=== PATIENT | female | born 1965 | race Caucasian/White ===

== ENCOUNTER 2023-07-05 20:20 | Emergency (ER) | payer BC ==
[2023-07-05] MEDS: Acetaminophen/HYDROcodone 325-5 MG Tab PO ONE (21:00)
[2023-07-05] MEDS: LORazepam 0.5 MG Tab PO ONE (21:00)
[2023-07-05 21:57] VITALS: BP 155/96; PULSE 83
== END 2023-07-05 21:57 | disposition home or self-care (01) ==
LOC: MW.ED 20:20
DX: S43.014A Anterior dislocation of right humerus, initial encounter (principal); I10 Essential (primary) hypertension; E78.00 Pure hypercholesterolemia, unspecified; E66.9 Obesity, unspecified; Z79.899 Other long term (current) drug therapy; W00.9XXA Unspecified fall due to ice and snow, initial encounter
CPT/HCPCS: 73030; 99283; A9270